=== PATIENT | male | born 1985 | race Caucasian/White ===

== ENCOUNTER 2021-02-22 06:52 | Outpatient (REF) | payer OTHER, SELFPAY ==
[2021-02-22 12:06] LABS: Alanine Aminotransferase 32 U/L (0-40); Albumin Level 4.2 g/dL (3.5-5.0); Alkaline Phosphatase 67 U/L (39-117); Anion Gap 11 (12-20); Aspartate Amino Transferase 20 U/L (5-37); Bilirubin Total 0.4 mg/dL (0.0-1.0); Blood Urea Nitrogen 9 mg/dL (9-16); Calcium 9.5 mg/dL (8.4-10.2); Carbon Dioxide 26 mmol/L (22-29); Chloride 107 mmol/L (96-108); Cholesterol 152 mg/dL; Estimated Glomerular Filt Rate > 60; Glucose Fasting 93 mg/dL (60-99); HDL Cholesterol 30 mg/dL; LDL Cholesterol Calculated 88 mg/dl; Potassium 4.3 mmol/L (3.3-5.1); Sodium 140 mmol/L (135-145); Triglycerides 173 mg/dL
[2021-02-22 12:16] LABS: TSH reflex Free T4 1.48 uIU/mL (0.32-4.0)
== END 2021-02-22 06:53 | disposition home or self-care (01) ==
LOC: HO.HMGCLDS 06:52
PROVIDERS: PCP Internal Medicine; Visit Provider Internal Medicine
DX: Z00.01 Encounter for general adult medical examination with abnormal findings (principal); E66.09 Other obesity due to excess calories
CPT/HCPCS: 36415; 80053; 80061; 84443

== ENCOUNTER 2023-02-21 10:21 | Outpatient (AMB) | payer OTHER, SELFPAY ==
--- NOTE | 2023-02-21 10:22 | A.OFFPC_ITS ---
Vital Signs 02/21/23 10:24 Height 5 ft 10 in Weight 238 lb 8 oz BMI 34.2 BP 122/86 Blood Pressure Location Lt brachial Position Sitting Pulse 67 Pulse Source Pulse Oximeter Pulse Oximetry (%) 98 Oxygen Delivery Method Room Air Intake Visit Reasons: PE Allergies No Known Allergies [No Known Allergies*] Allergy (Verified 02/21/23 10:26) Medication List - Last Reconciled 02/21/23 by Migdalia Simons MD No Known Home Meds Tobacco use date assessed: 02/21/23 Dental Screening Dental Screen Date: 02/21/23 Did you have a dental visit in the last 12 months?: Yes Did you have a dental problem in the last 6 months where you did not have access to dental care?: No Was dental information given to patient?: No HPI PE HPI Details Patient is 37-year-old gentleman came in today for physical exam Offer no complaints Labs done last year reviewed no abnormality seen Vital signs are stable except BMI of 34.2 patient is having difficulty losing weight however he is aware that he is over eating. I offered him appointment with the dietitian which was declined at this time . Follow-up 1 year physical exam [facility] Social History Housing: House Patient Tobacco Use Status: Never used Tobacco e-Cigarette/Vaping Use: Never Used Second Hand Smoke Exposure: No service: No Current occupational status: employed Cognitive needs: No Hearing needs: No Vision needs: Yes Questionnaire PHQ-9 Over the last 2 weeks, how often have you been bothered by any of the following problems? 1. Little interest or pleasure in doing things: more than half the days 2. Feeling down, depressed, or hopeless: not at all 3. Trouble falling or staying asleep, or sleeping too much: several days 4. Feeling tired or having little energy: several days 5. Poor appetite or overeating: several days 6. Feeling bad about yourself - or that you are a failure or have let yourself or your family down: not at all 7. Trouble concentrating on things, such as reading the newspaper or watching television: not at all 8. Moving or speaking so slowly that other people could have noticed. Or the opposite - being so fidgety or restless that you have been moving around a lot more than usual: not at all 9. Thoughts that you would be better off or of hurting yourself in some way: not at all Total score: 5 Depression Screening Interpretation: Negative 20816 - PHQ-9 Billing: Yes Source: Developed by Drs. Ba Biggs, Cynthia Headley, Dyllan Ro and colleagues, with an educational khang from [employer]. Thrive Questionnaire Date Thrive assessed: 02/21/23 I am a: Patient What is your living situation today?: I have a steady place to live Within the past 12 months, did the food you bought not last and you didn't have the money to get more?: Never true Within the past 12 months, did you worry whether your food would run out before you got money to buy more?: Never true Do you have trouble paying for medicines?: No Do you have trouble getting transportation to medical appointments?: No Do you have trouble paying your heating and electricity bill?: No Do you have trouble taking care of your child, family member or friend?: No Do you have trouble with day-to-day activities such as bathing, preparing meals, shopping, managing finances, etc.?: No Are you currently unemployed and looking for a job?: No Are you interested in more education?: No AUDIT C Alcohol Use Questionnaire (AUDIT-C) 1. How often do you have a drink containing alcohol?: Never 3. How often do you have six or more drinks on one occasion?: Never Total Score: 0 Score Reviewed/Action Taken: Yes MARIE-7 AMB Questionnaire MARIE-7 Date MARIE - 7 assessed: 02/21/23 Feeling nervous, anxious, or on edge: 1 = Several days Not being able to stop or control worryin = Not at all Worrying too much about different things: 2 = More than half the days Trouble relaxin = Not at all Being so restless that it is hard to sit still: 0 = Not at all Becoming easily annoyed or irritable: 1 = Several days Feeling afraid as if something awful might happen: 0 = Not at all Total MARIE-7 score (0-4 normal; 5-9 mild; 10-14 moderate; 15-21 severe): 4 Source: Developed by Drs. Ba Biggs, Dyllan Nix Kroenke and colleagues, with an educational khang from [employer]. MARIE-7 Assessment Billing MARIE-7 Assessment Tool: MARIE-7 Assessment 83907 Review of Systems Const Denies chills, Denies fever(s) and Denies headache(s) Eyes Denies blurry vision ENT Denies headache(s), Denies nasal discharge, Denies nasal obstruction, Denies odynophagia and Denies sinus pain Card Denies chest pain at rest and Denies chest pain with activity Resp Denies cough and Denies hemoptysis GI Denies diarrhea, Denies odynophagia, Denies vomiting and Denies hematemesis Reports as per HPI Musc Denies abnormal gait Skin/Breast Reports as per HPI Neuro Denies Neuro-related abnormal movements, Denies Abnormal speech present, Denies abnormal gait, Denies headache(s) and Denies Sensory deficit (Neuro) Psych Denies mood swings and Denies paranoia Endo Reports as per HPI Remy/Lymph Reports as per HPI Aller/Immun Reports as per HPI Physical exam (Primary Care) Vital Signs: Last Vital Signs Pulse 67 02/21/23 10:24 BP 122/86 02/21/23 10:24 Pulse Ox 98 02/21/23 10:24 Oxygen Delivery Method Room Air 02/21/23 10:24 BMI result Body Mass Index 34.2 Tobacco/Smoking Status: Tobacco use Status Tobacco use date assessed 02/21/23 02/21/23 10:27 Patient Tobacco Use Status Never used Tobacco 02/21/23 10:27 e-Cigarette/Vaping Use Never Used 02/21/23 10:27 PHQ-9: PHQ-9 Score PHQ-9: Total score 5 02/21/23 11:01 Depression Screening Interpretation: Negative Thrive Assessment: Date of Thrive Assessment Date Thrive assessed 02/21/23 02/21/23 11:01 Const General: cooperative, comfortable and no acute distress Orientation/consciousness: patient oriented x3 HENMT Head: Yes normocephalic and Yes atraumatic Eyes General: appearance normal, both eyes and all related structures Pupils: Equal, round and reactive pupils present EOM: EOMs intact bilaterally Neck Neck: Yes supple and No lymphadenopathy Thyroid: Thyroid normal Lymphatic: no lymphadenopathy noted Resp Effort & Inspection: normal respiratory effort and able to speak in complete sentences Auscultation: clear to auscultation bilaterally Cardio Heart sounds: S1 normal heart sound present and S2 normal heart sound present GI Palpation (GI): Soft to palpation and nontender Auscultation: normal bowel sounds General: Yes no CVA tenderness Back/Spine/Pelvis Back: no CVA tenderness Skin General skin exam: elasticity normal and turgor normal Neuro General: patient oriented x3 and gait normal Cranial nerves: Yes Equal, round and reactive pupils present Speech: No Abnormal speech present Sensory Exam: No Sensory deficit (Neuro) Coordination: tandem gait normal and Romberg test negative Extrem General: Yes normal exam except as noted and No edema Assessment and Plan Assessment & Plan (1) Encounter for general adult medical examination with abnormal findings: Code(s): Z00.01 - Encounter for general adult medical examination with abnormal findings (2) Obesity due to excess calories: Code(s): E66.09 - Other obesity due to excess calories Plan Patient is 37-year-old gentleman came in today for physical exam Offer no complaints Labs done last year reviewed no abnormality seen Vital signs are stable except BMI of 34.2 patient is having difficulty losing weight however he is aware that he is over eating. I offered him appointment with the dietitian which was declined at this time . Follow-up 1 year physical exam Coding Level of Care Code Est Pt Prev Care 18-39y(92170) Diagnoses Encounter for general adult medical examination with abnormal findings Z00.01 Obesity due to excess calories E66.09 Additional Codes MARIE-7 Assessment Billing - MARIE-7 Assessment Tool: MARIE-7 Assessment 50403 ([id number])
[2023-02-21 10:24] VITALS: BP 122/86; PULSE 67; O2SAT 98; BMI 34.2
== END 2023-02-21 10:49 | disposition home or self-care (01) ==
PROVIDERS: Visit Provider Internal Medicine
DX: Z00.01 Encounter for general adult medical examination with abnormal findings (principal); E66.09 Other obesity due to excess calories; Z68.34 Body mass index [BMI] 34.0-34.9, adult
CPT/HCPCS: 99395

== ENCOUNTER 2023-11-13 08:05 | Outpatient (AMB) | payer OTHER, SELFPAY ==
[2023-11-13 08:14] VITALS: BP 126/84; PULSE 102; TEMP 37.1; O2SAT 95; BMI 35.9
--- NOTE | 2023-11-13 08:14 | AM.OFFWIN_ITS ---
Intake Vital Signs 11/13/23 08:14 Height 5 ft 10 in Weight 250 lb BMI 35.9 BP 126/84 Blood Pressure Location Rt brachial Position Sitting Pulse 102 H Pulse Source Pulse Oximeter Temp 98.7 F Temp Source Oral Pulse Oximetry (%) 95 Oxygen Delivery Method Room Air Intake Visit Reasons: EP Allergic Reaction Intake Note: Pt presents to the office today for hives on his left arm and right hand. Pt states this started last monday and states they are sometimes itchy. He states he has been taking Benadryl to try and help but states it still isnt going away. Patient Tobacco Use Status: Never used Tobacco Allergies No Known Allergies [No Known Allergies*] Allergy (Verified 11/13/23 08:16) HPI HPI Comments History of Present Illness Details Patient presents to the walk-in today for sick visit Complaining of one-week rash to left forearm and right middle finger Has been using Benadryl and Celeste daily which has helped with the itching, but rash persists Started as a small area on the left wrist and right middle finger, then spread to cover left anterior forearm. Has not spread further in the last 5 days Denies shortness of breath, difficulty breathing, difficulty swallowing, swelling of the lips or tongue, chest pain, dizziness, weakness PFSH Social History (Reviewed 11/13/23 @ 08:16 by Ashley Pan [facility]) Housing: House Patient Tobacco Use Status: Never used Tobacco e-Cigarette/Vaping Use: Never Used Second Hand Smoke Exposure: No service: No Current occupational status: employed Cognitive needs: No Hearing needs: No Vision needs: Yes Review of Systems Const All systems reviewed & are unremarkable except as noted in HPI and below Physical Exam Vital Signs: Last Vital Signs Temp 98.7 F 11/13/23 08:14 Pulse 102 H 11/13/23 08:14 BP 126/84 11/13/23 08:14 Pulse Ox 95 11/13/23 08:14 Oxygen Delivery Method Room Air 11/13/23 08:14 BMI result Body Mass Index 35.9 General: awake, alert, oriented. Answers questions appropriately. Fully engaged in examination. Skin: Erythematous, maculopapular rash noted to right index finger and left forearm without drainage or lymphangitis HEENT: Normocephalic. Hearing intact. Cardiac: External chest normal in appearance. Respiratory: No cough, audible wheezing or stridor. Abdomen: without gross distension. MS: No obvious swelling or deformities. Neurological: Oriented to person, place, time and situation. Thought process intact. No gait abnormalities appreciated. Psychiatric: Appropriate mood and affect. Good judgment and insight. Assessment & Plan Assessment & Plan (1) Contact dermatitis: Code(s): L25.9 - Unspecified contact dermatitis, unspecified cause Plan Prednisone 40 mg p.o. daily for 5 days Hydrocortisone 2.5% topical b.i.d. Continue with Benadryl as needed Apply ice or cold cloth as needed for itching Return here for any new or worsening symptoms Follow up with PCP or dermatology if symptoms persist Medications: New prednisone 40 mg (2 x 20 mg) PO DAILY 5 days 10 tabs 0RF hydrocortisone 2.5% 1 appl topical BID 30 grams 0RF Coding Level of Care Code Est Pt Level 3 (59757) Diagnoses Contact dermatitis L25.9
== END 2023-11-13 10:26 | disposition home or self-care (01) ==
PROVIDERS: PCP Internal Medicine; Visit Provider Registered Nurse Emergency
DX: L25.9 Unspecified contact dermatitis, unspecified cause (principal)
CPT/HCPCS: 99213

== ENCOUNTER 2023-11-16 14:41 | Outpatient (AMB) | payer OTHER, SELFPAY ==
[2023-11-16 14:50] VITALS: BP 148/82; PULSE 87; TEMP 36.8; O2SAT 96; BMI 35.5
--- NOTE | 2023-11-16 14:50 | AM.OFFWIN_ITS ---
Intake Vital Signs 3 11/16/23 14:50 Height 5 ft 10 in Weight 247 lb 2 oz BMI 35.5 BP 148/82 H Blood Pressure Location Rt brachial Position Sitting Pulse 87 Pulse Source Pulse Oximeter Temp 98.2 F Temp Source Oral Pulse Oximetry (%) 96 Oxygen Delivery Method Room Air Intake Visit Reasons: EP Lft forearm swollen spots on thigh Intake Note: Pt presents to the office today for c/o left forearm swollen and spots on thigh since monday. Pt states he was seen at the walk in here on monday but states the swelling in his arm has gotten worse. Patient Tobacco Use Status: Never used Tobacco Allergies No Known Allergies [No Known Allergies*] Allergy (Verified 11/16/23 14:53) HPI HPI Comments 2 History of Present Illness0 Details 38 y/o male patient who presents to the walk in clinic with c/o Rash on his left forearm and right hand fingers. Pt reports that the rash is spreading and getting worse. He was seen here Monday and given Oral Prednisone and Hydrocortisone cream. Reports medications did not work. Reports that rash is very itchy and painful at times. Denies any h/o allergies, eczema or psoriasis. Denies any recent changes to his diet, cosmetic products or detergent. [facility] Social History Housing: House Patient Tobacco Use Status: Never used Tobacco e-Cigarette/Vaping Use: Never Used Second Hand Smoke Exposure: No service: No Current occupational status: employed Cognitive needs: No Hearing needs: No Vision needs: Yes Review of Systems Const All systems reviewed & are unremarkable except as noted in HPI and below Physical Exam Vital Signs: Last Vital Signs Temp 98.2 F 11/16/23 14:50 Pulse 87 11/16/23 14:50 BP 148/82 H 11/16/23 14:50 Pulse Ox 96 11/16/23 14:50 Oxygen Delivery Method Room Air 11/16/23 14:50 BMI result Body Mass Index 35.5 Const General: no acute distress Nutritional Appearance: obese Orientation/consciousness: patient oriented x3 Skin Other: Erythematous maculopapular rash with raised and defined boarders left forearm and right middle and ring fingers. Neuro General: patient oriented x3, gait normal and moves all extremities Extrem Left upper extremity: elbow/forearm Elbow/forearm/wrist images: 2 1. Erythematous maculopapular rash with raised and defined boarders left forearm and right middle and ring fingers. Hand/finger images: 2 1. Erythematous maculopapular rash with raised and defined boarders left forearm and right middle and ring fingers. Psych Speech and movement: Normal speech and movement present Assessment & Plan Assessment & Plan (1) Rash and nonspecific skin eruption: Code(s): R21 - Rash and other nonspecific skin eruption Plan: Cellulitis vs Eczema vs Dermatitis vs psoriasis. Will Tx as fungal and sent Fluconazole Tabs and Econazole topical cream. Advised Pt to return Monday for re-evaluation. Medications: New 2 fluconazole TAKE 1 TABLET NOW, TAKE SECOND DOSE IN 72 HOURS 150 mg PO DAILY 3 tabs 0RF FUNGAL econazole 1% 1 appl topical BID 30 grams 0RF R21 - Rash and other nonspecific skin eruption diphenhydramine HCl (Benadryl) 25 mg PO TID PRN 30 caps 0RF itching R21 - Rash and other nonspecific skin eruption Coding Level of Care Code Est Pt Level 3 (99609) Diagnoses Rash and nonspecific skin eruption R21 Time Spent (min) 15
== END 2023-11-16 15:30 | disposition home or self-care (01) ==
PROVIDERS: PCP Internal Medicine; Visit Provider Nurse Practitioner Family
DX: R21 Rash and other nonspecific skin eruption (principal)
CPT/HCPCS: 99213

== ENCOUNTER 2023-11-20 08:33 | Outpatient (AMB) | payer OTHER, SELFPAY ==
[2023-11-20 09:05] VITALS: BP 126/80; PULSE 90; TEMP 37.1; O2SAT 98; BMI 34.9
--- NOTE | 2023-11-20 09:05 | AM.OFFWIN_ITS ---
Intake Vital Signs 3 11/20/23 09:05 Height 5 ft 10 in Weight 243 lb BMI 34.9 BP 126/80 Blood Pressure Location Lt brachial Position Sitting Pulse 90 Pulse Source Pulse Oximeter Temp 98.8 F Temp Source Oral Pulse Oximetry (%) 98 Intake Visit Reasons: EP;WI 11/15,asked to return to assess rash ([place]) Intake Note: pt is here for follow up on rash that has not healed Patient Tobacco Use Status: Never used Tobacco Allergies No Known Allergies [No Known Allergies*] Allergy (Verified 11/20/23 09:05) Do you need a note to return to daycare/school/sports/work: Yes HPI HPI Comments 2 History of Present Illness0 Details 38 y/o male patient who presents to [facility] with c/o rash. Pt was seen by me last week and given Oral/Topical Anti-fungal for Rash left fore-arm. Here to day for Re-evaluation. [facility] Social History Housing: House Patient Tobacco Use Status: Never used Tobacco e-Cigarette/Vaping Use: Never Used Second Hand Smoke Exposure: No service: No Current occupational status: employed Cognitive needs: No Hearing needs: No Vision needs: Yes Review of Systems Const All systems reviewed & are unremarkable except as noted in HPI and below Physical Exam Vital Signs: Last Vital Signs Temp 98.8 F 11/20/23 09:05 Pulse 90 11/20/23 09:05 BP 126/80 11/20/23 09:05 Pulse Ox 98 11/20/23 09:05 BMI result Body Mass Index 34.9 Const General: comfortable and no acute distress Orientation/consciousness: patient oriented x3 Neuro General: patient oriented x3, gait normal and moves all extremities Extrem Elbow/forearm/wrist images: 2 1. Erythematous maculopapular rash with raised and defined boarders left forearm and right middle and ring fingers. Hand/finger images: document embedded image 1. Erythematous maculopapular rash with raised and defined boarders left forearm and right m Psych Speech and movement: Normal speech and movement present Assessment & Plan Assessment & Plan (1) Rash and nonspecific skin eruption: Code(s): R21 - Rash and other nonspecific skin eruption Plan: - no improvement,worse - Called [facility] for an Urgent Appointment. - Pt scheduled for 11/21/23 @ 245 - Will hold Keflex until Derm Appt. Coding Level of Care Code Est Pt Level 3 (18331) Diagnoses Rash and nonspecific skin eruption R21 Time Spent (min) 15
== END 2023-11-20 09:41 | disposition home or self-care (01) ==
PROVIDERS: PCP Internal Medicine; Visit Provider Nurse Practitioner Family
DX: R21 Rash and other nonspecific skin eruption (principal)
CPT/HCPCS: 99213

== ENCOUNTER 2024-02-27 11:21 | Outpatient (AMB) | payer OTHER, SELFPAY ==
[2024-02-27 11:25] VITALS: BP 136/84; PULSE 69; O2SAT 94; BMI 36.7
--- NOTE | 2024-02-27 11:25 | MHC.PC.OV ---
Vital Signs 02/27/24 11:25 Height 5 ft 10 in Weight 255 lb 8 oz BMI 36.7 BP 136/84 Blood Pressure Location Rt brachial Position Sitting Pulse 69 Pulse Source Pulse Oximeter Pulse Oximetry (%) 94 Oxygen Delivery Method Room Air Intake Visit Reasons: PE Allergies No Known Allergies [No Known Allergies*] Allergy (Verified 02/27/24 11:25) Medication List - Last Reconciled 02/27/24 by Migdalia Simons MD No Known Home Meds Tobacco use date assessed: 02/27/24 Dental Screening Dental Screen Date: 02/27/24 Did you have a dental visit in the last 12 months?: Yes Did you have a dental problem in the last 6 months where you did not have access to dental care?: No Was dental information given to patient?: Patient has dentist HPI PE HPI Details 38 year old male came in today for PE offer no complain Labs order placed to be done fasting BMI is elevated need lose patient is aware [facility] Social History Housing: House Patient Tobacco Use Status: Never used Tobacco e-Cigarette/Vaping Use: Never Used Second Hand Smoke Exposure: No service: No Current occupational status: employed Cognitive needs: No Hearing needs: No Vision needs: Yes Questionnaire PHQ-9 Over the last 2 weeks, how often have you been bothered by any of the following problems? 1. Little interest or pleasure in doing things: not at all 2. Feeling down, depressed, or hopeless: not at all 3. Trouble falling or staying asleep, or sleeping too much: several days 4. Feeling tired or having little energy: several days 5. Poor appetite or overeating: not at all 6. Feeling bad about yourself - or that you are a failure or have let yourself or your family down: not at all 7. Trouble concentrating on things, such as reading the newspaper or watching television: not at all 8. Moving or speaking so slowly that other people could have noticed. Or the opposite - being so fidgety or restless that you have been moving around a lot more than usual: not at all 9. Thoughts that you would be better off or of hurting yourself in some way: not at all Total score: 2 Depression Screening Interpretation: Negative Depression Screening Done: Yes 08853 - PHQ-9 Billing: Yes Source: Developed by Drs. Ba Biggs, Cynthia Headley, Dyllan Ro and colleagues, with an educational khang from [employer]. Thrive Questionnaire Date Thrive assessed: 02/27/24 I am a: Patient What is your living situation today?: I have a steady place to live Within the past 12 months, did the food you bought not last and you didn't have the money to get more?: Never true Within the past 12 months, did you worry whether your food would run out before you got money to buy more?: Never true Do you have trouble paying for medicines?: No Do you have trouble getting transportation to medical appointments?: No Do you have trouble paying your heating and electricity bill?: No Do you have trouble taking care of your child, family member or friend?: I choose not to answer this question Do you have trouble with day-to-day activities such as bathing, preparing meals, shopping, managing finances, etc.?: No Are you currently unemployed and looking for a job?: No Are you interested in more education?: I choose not to answer this question Please select the resources that you would like help with: Housing/Prison Currently or been in a relationship where the following occur: No concerns reported THRIVE Score: 0 AUDIT C Alcohol Use Questionnaire (AUDIT-C) 1. How often do you have a drink containing alcohol?: Never 3. How often do you have six or more drinks on one occasion?: Never Total Score: 0 Score Reviewed/Action Taken: Yes MARIE-7 AMB Questionnaire MARIE-7 Date MARIE - 7 assessed: 02/27/24 Feeling nervous, anxious, or on edge: 1 = Several days Not being able to stop or control worryin = Several days Worrying too much about different things: 1 = Several days Trouble relaxin = Not at all Being so restless that it is hard to sit still: 0 = Not at all Becoming easily annoyed or irritable: 0 = Not at all Feeling afraid as if something awful might happen: 0 = Not at all Total MARIE-7 score (0-4 normal; 5-9 mild; 10-14 moderate; 15-21 severe): 3 Source: Developed by Cynthia Fields, Dyllan Ro and colleagues, with an educational khang from [employer]. MARIE-7 Assessment Billing MARIE-7 Assessment Tool: MARIE-7 Assessment 66356 Review of Systems Const Denies chills, Denies fever(s) and Denies headache(s) Eyes Denies blurry vision ENT Denies headache(s), Denies nasal discharge, Denies nasal obstruction, Denies odynophagia and Denies sinus pain Card Denies chest pain at rest and Denies chest pain with activity Resp Denies cough and Denies hemoptysis GI Denies diarrhea, Denies odynophagia, Denies vomiting and Denies hematemesis Reports as per HPI Musc Denies abnormal gait Skin/Breast Reports as per HPI Neuro Denies Neuro-related abnormal movements, Denies Abnormal speech present, Denies abnormal gait, Denies headache(s) and Denies Sensory deficit (Neuro) Psych Denies mood swings and Denies paranoia Endo Reports as per HPI Remy/Lymph Reports as per HPI Aller/Immun Reports as per HPI Physical exam (Primary Care) Vital Signs: Last Vital Signs Pulse 69 02/27/24 11:25 BP 136/84 02/27/24 11:25 Pulse Ox 94 02/27/24 11:25 Oxygen Delivery Method Room Air 02/27/24 11:25 BMI result Body Mass Index 36.7 Tobacco/Smoking Status: Tobacco use Status Tobacco use date assessed 02/27/24 02/27/24 11:28 Patient Tobacco Use Status Never used Tobacco 02/27/24 11:28 e-Cigarette/Vaping Use Never Used 02/27/24 11:28 PHQ-9: PHQ-9 Score PHQ-9: Total score 2 02/27/24 11:42 Depression Screening Interpretation: Negative Thrive Assessment: Date of Thrive Assessment Date Thrive assessed 02/27/24 02/27/24 11:28 Currently or been in a relationship where the following occur: No concerns reported Const General: cooperative, comfortable and no acute distress Orientation/consciousness: patient oriented x3 HENMT Head: Yes normocephalic and Yes atraumatic Eyes General: appearance normal, both eyes and all related structures Pupils: Equal, round and reactive pupils present EOM: EOMs intact bilaterally Neck Neck: Yes supple and No lymphadenopathy Thyroid: Thyroid normal Lymphatic: no lymphadenopathy noted Resp Effort & Inspection: normal respiratory effort and able to speak in complete sentences Auscultation: clear to auscultation bilaterally Cardio Heart sounds: S1 normal heart sound present and S2 normal heart sound present GI Palpation (GI): Soft to palpation and nontender Auscultation: normal bowel sounds General: Yes no CVA tenderness Back/Spine/Pelvis Back: no CVA tenderness Skin General skin exam: elasticity normal and turgor normal Neuro General: patient oriented x3 and gait normal Cranial nerves: Yes Equal, round and reactive pupils present Speech: No Abnormal speech present Sensory Exam: No Sensory deficit (Neuro) Coordination: tandem gait normal and Romberg test negative Extrem General: Yes normal exam except as noted and No edema Assessment and Plan Assessment & Plan (1) Annual physical exam: Code(s): Z00.00 - Encounter for general adult medical examination without abnormal findings (2) Obesity due to excess calories: Code(s): E66.09 - Other obesity due to excess calories Qualifiers: Body mass index: BMI 36.0-36.9 Obesity classification: adult class 2 (BMI 35 - 39.9) Serious obesity comorbidity presence: without serious comorbidity Qualified Code(s): E66.09 - Other obesity due to excess calories; Z68.36 - Body mass index [BMI] 36.0-36.9, adult Plan 38 year old male came in today for PE offer no complain Labs order placed to be done fasting BMI is elevated need lose patient is aware Orders: Orders TSH reflex Free T4 Today E66.09 - Other obesity due to excess calories, Z00.01 - Encounter for general adult medical examination with abnormal findings Complete Blood Count Auto Diff Today E66.09 - Other obesity due to excess calories, Z00.01 - Encounter for general adult medical examination with abnormal findings Comprehensive [place]. Panel Fast Today E66.09 - Other obesity due to excess calories, Z00.01 - Encounter for general adult medical examination with abnormal findings Lipid Panel Today E66.09 - Other obesity due to excess calories, Z00.01 - Encounter for general adult medical examination with abnormal findings Coding Level of Care Code Est Pt Prev Care 18-39y(81900) Diagnoses Annual physical exam Z00.00 Class 2 obesity due to excess calories without serious comorbidity with body mass index (BMI) of 36.0 to 36.9 in adult E66.09; Z68.36 Body mass index: BMI 36.0-36.9 Obesity classification: adult class 2 (BMI 35 - 39.9) Serious obesity comorbidity presence: without serious comorbidity Additional Codes MARIE-7 Assessment Billing - MARIE-7 Assessment Tool: MARIE-7 Assessment 00407 ([id number])
== END 2024-02-27 11:49 | disposition home or self-care (01) ==
PROVIDERS: PCP Internal Medicine; Visit Provider Internal Medicine
DX: Z00.00 Encounter for general adult medical examination without abnormal findings (principal); E66.09 Other obesity due to excess calories; Z68.36 Body mass index [BMI] 36.0-36.9, adult
CPT/HCPCS: 99395

== ENCOUNTER 2024-03-02 07:18 | Outpatient (REF) | payer OTHER, SELFPAY ==
[2024-03-02 11:25] LABS: MANUAL DIFF FLAG NO
[2024-03-02 11:30] LABS: Basophils Absolute Auto 0.1 X10*3/uL (0.0-0.2); Basophils Percent Auto 1.3 % (0-2); Eosinophils Absolute Auto 0.2 X10*3/uL (0.0-0.4); Eosinophils Percent Auto 2.9 % (0-4); Hematocrit 48.5 % (42.0-52.0); Hemoglobin 16.2 g/dl (14.0-18.0); Imm Gran Abs Auto 0.01 X10*3/uL (0.00-0.03); Imm Gran Pct Auto 0.1 % (0.0-0.4); Lymphocytes Absolute Auto 2.4 X10*3/uL (1.2-4.9); Lymphocytes Percent Auto 31.3 % (20-40); Mean Corpuscular HGB Conc 33.4 g/dl (31.0-36.0); Mean Corpuscular Hemoglobin 28.5 pg (27.0-33.0); Mean Corpuscular Volume 85.2 fL (80.0-98.0); Mean Platelet Volume 10.2 fL (9.4-12.4); Monocytes Absolute Auto 0.7 X10*3/uL (0.1-1.2); Monocytes Percent Auto 9.4 % (2-11); Neutrophils Absolute Auto 4.2 x10*3/uL (2.0-8.3); Platelet Count 304 X10*3/uL (160-400); Red Blood Count 5.69 X10*6/uL (4.60-5.80); Red Cell Distribution Width 13.5 % (11.0-16.0); White Blood Count 7.6 X10*3/uL (4.8-10.8)
[2024-03-02 11:47] LABS: Alanine Aminotransferase 30 U/L (0-40); Albumin Level 4.2 g/dL (3.5-5.0); Alkaline Phosphatase 90 U/L (39-117); Anion Gap 12 (12-20); Aspartate Amino Transferase 22 U/L (5-37); Bilirubin Total 0.5 mg/dL (0.0-1.0); Blood Urea Nitrogen 10 mg/dL (9-16); Calcium 9.6 mg/dL (8.4-10.2); Carbon Dioxide 25 mmol/L (22-29); Chloride 106 mmol/L (96-108); Cholesterol 173 mg/dL (<200); Estimated Glomerular Filt Rate > 60; Glucose Fasting 97 mg/dL (60-99); HDL Cholesterol 33 mg/dL (>40); LDL Cholesterol Calculated 108 mg/dL (<100); Sodium 139 mmol/L (135-145); Total Protein 7.1 g/dL (6.5-8.0); Triglycerides 164 mg/dL (<150)
[2024-03-02 12:05] LABS: TSH reflex Free T4 1.91 uIU/mL (0.32-4.0)
== END 2024-03-02 07:19 | disposition home or self-care (01) ==
LOC: HO.HMGCLDS 07:18
PROVIDERS: PCP Internal Medicine; Visit Provider Internal Medicine
DX: Z00.01 Encounter for general adult medical examination with abnormal findings (principal); E66.09 Other obesity due to excess calories
CPT/HCPCS: 36415; 80053; 80061; 84443; 85025

== ENCOUNTER 2025-03-11 15:22 | Outpatient (AMB) | payer OTHER, SELFPAY ==
[2025-03-11 15:26] VITALS: BP 134/80; PULSE 74; O2SAT 97; BMI 37.4
--- NOTE | 2025-03-11 15:26 | A.OFFPC_ITS ---
Vital Signs 03/11/25 15:26 Height 5 ft 10 in Weight 261 lb BMI 37.4 BP 134/80 Blood Pressure Location Lt brachial Position Sitting Pulse 74 Pulse Source Pulse Oximeter Pulse Oximetry (%) 97 Intake Visit Reasons: PE Tow Car Driver Required: No Accompanied by: Self / Same As Patient Allergies No Known Allergies (No Known Allergies*) Allergy (Verified 03/11/25 15:26) Medication List - Last Reconciled 03/11/25 by Migdalia Simons MD No Known Home Meds Tobacco use date assessed: 03/11/25 Dental Screening Dental Screen Date: 03/11/25 Did you have a dental visit in the last 12 months?: Yes Did you have a dental problem in the last 6 months where you did not have access to dental care?: No Was dental information given to patient?: Patient has dentist HPI PE HPI Details Physical exam appointment - The patient is a 39-year-old male pres enting for a routine physical examination and follow-up of previously identified conditions. - The patient has a history of pain in t he right ankle attributed to heavy jumping and high-impact exercises. Pain was mentioned last year, and the patient reported having ceased the jumping activities, though other exercises continue. The current status of the ankle is reported as stable without pain. - The patient has a history of prehypert ension with a blood pressure reading from this visit of 134/80 mmHg. Discussions highlighted this being within a prehypertensive range, with advice on dietary measures and weight management given due to a family history of hypertension (father). - he has gained some weight compared to last year Medical History: - Prehypertension Social History: - The patient reported attempting weight loss efforts and has engaged in regular exercise, though has stopped high-impact jumping due to a prior history of right ankle pain. - The patient has noted weight fluctuati ons and a gain of 6 pounds since last measured. - Diet was mentioned as being restricted at times to aid weight loss. Family History: - Father with a history of hypertension Health Maintenance - Discussed BP management and risk reduc tion strategies due to prehypertension, including reduced salt intake and weight management. - 2020 tetanus vaccination update, detai ls not available in current records. - Discussed importance of regular eye ex aminations as patient acknowledged needing an ur coordinator or instrument panel assembler visit. 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 Diagnostic results - Blood pressure readin/80 mmHg Patient Instructions - Monitor blood pressure regularly, mono elbertlly if rising above 140. - Continue efforts on weight management and healthy diet. - Follow-up with pharmacy for records of tetanus vaccination if needed. - Consider scheduling an eye examination in the near future. - Continue routine exercises without hig h-impact jumping. - Book the next annual physical in [place]. Review of Systems - General: No fever no chills - Neurological: No headaches no dizzin ess - Ear nose throat: No sore throat no hearing difficulty no ear pain - Cardiovascular: No syncope, no chest pain, no palpitations - Gastrointestinal: No nausea vomiting or diarrhea - Endocrine: No polyuria polydipsia no heat intolerance - Genitourinary: No dysuria - Skin: No new complaints Physical Exam General: Cooperative, healthy appearing, comfortable, no acute distress Orientation: Patient oriented x3 Head: Normal to inspection Ears: Within normal limit visually, no problem reported Nose: Normal external nose present Face and sinus: Normal facial exam Eyes: Appearance normal, extraocular movement intact pupils reactive, last checked a while ago, needs instrument panel assembler or ur coordinator visit Neck: Normal visual inspection and supple Respiratory: Normal respiratory effort and able to speak in complete sentences. Clear to auscultation, no stridor Cardiovascular: S1 and S2 RRR GI: Normal to inspection. Soft to palpation and nontender, no constipation, no diarrhea, no heartburn recently Skin: Turgor normal, no acute findings, no new skin problems, moles, or rashes Neuro: Patient oriented x3, motor sensory intact, balance intact, tandem pass Extremities: Normal to inspection, full range of motion [facility] Surgical History No pertinent past surgical history Social History Housing: House Patient Tobacco Use Status: Never used Tobacco e-Cigarette/Vaping Use: Never Used Second Hand Smoke Exposure: No service: No Current occupational status: employed Cognitive needs: No Hearing needs: No Vision needs: Yes Questionnaire PHQ-9 Over the last 2 weeks, how often have you been bothered by any of the following problems? 1. Little interest or pleasure in doing things: not at all 2. Feeling down, depressed, or hopeless: not at all 3. Trouble falling or staying asleep, or sleeping too much: several days 4. Feeling tired or having little energy: several days 5. Poor appetite or overeating: not at all 6. Feeling bad about yourself - or that you are a failure or have let yourself or your family down: not at all 7. Trouble concentrating on things, such as reading the newspaper or watching television: not at all 8. Moving or speaking so slowly that other people could have noticed. Or the opposite - being so fidgety or restless that you have been moving around a lot more than usual: not at all 9. Thoughts that you would be better off or of hurting yourself in some way: not at all Total score: 2 Depression Screening Interpretation: Negative Depression Screening Done: Yes 56317 - PHQ-9 Billing: Yes Source: Developed by Drs. Ba Biggs, Cynthia Headley, Dyllan Ro and colleagues, with an educational khang from [employer]. Thrive Questionnaire Date Thrive assessed: 03/11/25 I am a: Patient What is your living situation today?: I have a steady place to live Within the past 12 months, did the food you bought not last and you didn't have the money to get more?: Never true Within the past 12 months, did you worry whether your food would run out before you got money to buy more?: Never true Do you have trouble paying for medicines?: No Do you have trouble getting transportation to medical appointments?: No Do you have trouble paying your heating and electricity bill?: No Do you have trouble taking care of your child, family member or friend?: No Do you have trouble with day-to-day activities such as bathing, preparing meals, shopping, managing finances, etc.?: No Are you currently unemployed and looking for a job?: No Are you interested in more education?: No Please select the resources that you would like help with: None Currently or been in a relationship where the following occur: No concerns reported THRIVE Score: 0 AUDIT C Alcohol Use Questionnaire (AUDIT-C) 1. How often do you have a drink containing alcohol?: Never 3. How often do you have six or more drinks on one occasion?: Never Total Score: 0 Score Reviewed/Action Taken: Yes MARIE-7 AMB Questionnaire MARIE-7 Date MARIE - 7 assessed: 03/11/25 Feeling nervous, anxious, or on edge: 1 = Several days Not being able to stop or control worryin = Several days Worrying too much about different things: 1 = Several days Trouble relaxin = Several days Being so restless that it is hard to sit still: 0 = Not at all Becoming easily annoyed or irritable: 0 = Not at all Feeling afraid as if something awful might happen: 0 = Not at all Total MARIE-7 score (0-4 normal; 5-9 mild; 10-14 moderate; 15-21 severe): 4 Source: Developed by Drs. Ba Biggs, Cynthia Headley, Dyllan Ro and colleagues, with an educational khang from [employer]. MARIE-7 Assessment Billing MARIE-7 Assessment Tool: MARIE-7 Assessment 53767 Physical exam (Primary Care) Vital Signs: Last Vital Signs Pulse 74 03/11/25 15:26 BP 134/80 03/11/25 15:26 Pulse Ox 97 03/11/25 15:26 BMI result Body Mass Index 37.4 Tobacco/Smoking Status: Tobacco use Status Tobacco use date assessed 03/11/25 03/11/25 15:27 Patient Tobacco Use Status Never used Tobacco 03/11/25 15:27 e-Cigarette/Vaping Use Never Used 03/11/25 15:27 PHQ-9: PHQ-9 Score PHQ-9: Total score 2 03/11/25 15:27 Depression Screening Interpretation: Negative Thrive Assessment: Date of Thrive Assessment Date Thrive assessed 03/11/25 03/11/25 15:27 Currently or been in a relationship where the following occur: No concerns reported Coding Level of Care Code Est Pt Level 3 (50178) Est Pt Prev Care 18-39y(71813) Diagnoses Encounter for general adult medical examination with abnormal findings Z00.01 Class 2 obesity due to excess calories without serious comorbidity with body mass index (BMI) of 36.0 to 36.9 in adult E66.09; Z68.36 Obesity classification: adult class 2 (BMI 35 - 39.9) Serious obesity comorbidity presence: without serious comorbidity Body mass index: BMI 36.0-36.9 Pre-hypertension R03.0 Additional Codes MARIE-7 Assessment Billing - MARIE-7 Assessment Tool: MARIE-7 Assessment 26711 ([id number]) PHQ-9 - 88035 - PHQ-9 Billing: Yes ([id number]) Assessment & Plan Assessment & Plan (1) Encounter for general adult medical examination with abnormal findings: Code(s): Z00.01 - Encounter for general adult medical examination with abnormal findings Category: Medical (2) Obesity due to excess calories: Code(s): E66.09 - Other obesity due to excess calories Category: Medical Qualifiers: Obesity classification: adult class 2 (BMI 35 - 39.9) Serious obesity comorbidity presence: without serious comorbidity Body mass index: BMI 36.0- 36.9 Qualified Code(s): E66.09 - Other obesity due to excess calories; Z68.36 - Body mass index [BMI] 36.0-36.9, adult (3) Pre-hypertension: Code(s): R03.0 - Elevated blood-pressure reading, without diagnosis of hypertension Category: Medical Plan Physical exam appointment - The patient is a 39-year-old male presenting for a routine physical examination and follow-up of previously identified conditions. - The patient has a history of pain in the right ankle attributed to heavy jumping and high-impact exercises. Pain was mentioned last year, and the patient reported having ceased the jumping activities, though other exercises continue. The current status of the ankle is reported as stable without pain. - The patient has a history of prehypertension with a blood pressure reading from this visit of 134/80 mmHg. Discussions highlighted this being within a prehypertensive range, with advice on dietary measures and weight management given due to a family history of hypertension (father). - he has gained some weight compared to last year Medical History: - Prehypertension Social History: - The patient reported attempting weight loss efforts and has engaged in regular exercise, though has stopped high-impact jumping due to a prior history of right ankle pain. - The patient has noted weight fluctuations and a gain of 6 pounds since last measured. - Diet was mentioned as being restricted at times to aid weight loss. Family History: - Father with a history of hypertension Health Maintenance - Discussed BP management and risk reduction strategies due to prehypertension, including reduced salt intake and weight management. - 2020 tetanus vaccination update, details not available in current records. - Discussed importance of regular eye examinations as patient acknowledged needing an ur coordinator or instrument panel assembler visit. 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 Diagnostic results - Blood pressure readin/80 mmHg Patient Instructions - Monitor blood pressure regularly, especially if rising above 140. - Continue efforts on weight management and healthy diet. - Follow-up with pharmacy for records of tetanus vaccination if needed. - Consider scheduling an eye examination in the near future. - Continue routine exercises without high-impact jumping. - Book the next annual physical in advance. Orders: Orders Lipid Panel 11 Months E66.09 - Other obesity due to excess calories, R03.0 - Elevated blood-pressure reading, without diagnosis of hypertension, Z00.01 - Encounter for general adult medical examination with abnormal findings, Z68.36 - Body mass index [BMI] 36.0-36.9, adult Vitamin D 25-OH (D2 and D3) 11 Months E66.09 - Other obesity due to excess calories, R03.0 - Elevated blood-pressure reading, without diagnosis of hypertension, Z00.01 - Encounter for general adult medical examination with abnormal findings, Z68.36 - Body mass index [BMI] 36.0-36.9, adult Complete Blood Count Auto Diff 11 Months E66.09 - Other obesity due to excess calories, R03.0 - Elevated blood-pressure reading, without diagnosis of hypertension, Z00.01 - Encounter for general adult medical examination with abnormal findings, Z68.36 - Body mass index [BMI] 36.0-36.9, adult Comprehensive [place]. Panel Fast 11 Months E66.09 - Other obesity due to excess calories, R03.0 - Elevated blood-pressure reading, without diagnosis of hypertension, Z00.01 - Encounter for general adult medical examination with abnormal findings, Z68.36 - Body mass index [BMI] 36.0-36.9, adult TSH reflex Free T4 11 Months E66.09 - Other obesity due to excess calories, R03.0 - Elevated blood-pressure reading, without diagnosis of hypertension, Z00.01 - Encounter for general adult medical examination with abnormal findings, Z68.36 - Body mass index [BMI] 36.0-36.9, adult
== END 2025-03-11 15:49 | disposition home or self-care (01) ==
LOC: HO.HMCC 15:23
PROVIDERS: PCP Internal Medicine; Visit Provider Internal Medicine
DX: Z00.01 Encounter for general adult medical examination with abnormal findings (principal); E66.09 Other obesity due to excess calories; Z68.36 Body mass index [BMI] 36.0-36.9, adult; R03.0 Elevated blood-pressure reading, without diagnosis of hypertension

== ENCOUNTER → 2025-03-11 15:22 | Outpatient (BNVA) | payer OTHER, SELFPAY | PROVIDERS: PCP Internal Medicine; Visit Provider Internal Medicine | DX: Z00.01 Encounter for general adult medical examination with abnormal findings (principal); M25.571 Pain in right ankle and joints of right foot; E66.09 Other obesity due to excess calories; R03.0 Elevated blood-pressure reading, without diagnosis of hypertension; Z68.37 Body mass index [BMI] 37.0-37.9, adult | CPT/HCPCS: 96127 ==